=== PATIENT | female | born 1955 | race African-American/Black ===

== ENCOUNTER 2016-05-23 10:09 | Emergency (ER) | payer OTHER ==
[2016-05-23 10:14] VITALS: BMI 29.6
--- NOTE | 2016-05-23 10:58 | PDOC ---
History of Present Illness - History of Present Illness Initial Comments: 05/23/16 10:52 60-year-old female with a history of lupus, with lupus nephropathy, and a most recent creatinine 1.8, who is not on any medications at this time and is not on any immunosuppressants at this time She has a right pelvic kidney She also has a history of DJD of the lower T-spine, and chronic back pain in the lower T-spine Patient also has neuropathy in the left leg, for which she is on gabapentin She also has a history of hypertension and hyperlipidemia She is complaining of gradually increasing lower T-spine area pain, which is now worse with musculoskeletal maneuvers, and worse pulling herself up to a sitting position She denies any associated fevers or chills, she denies any bowel or bladder symptoms She denies any weakness in her lower extremities She denies any change in her left lower extremity neuropathy She denies any urinary symptoms, and she denies any dysuria urgency or frequency She denies any flank pain She denies any HOTEL SECURITY OFFICER symptoms, and has had a recent HOTEL SECURITY OFFICER exam which was normal She denies any abdominal pain with this She denies any other complaints at this time She states that she is able to take Tylenol, but not NSAIDs because of her nephropathy She states that her Tylenol has been not been helping her for this gradual exacerbation of her chronic back pain She denies any new symptoms or any alarm symptoms She denies any other complaints at this time, and the remainder of the review of systems is negative <Echo Mcdonnell - Last Filed: 05/23/16 12:50> <Nadira Davis - Last Filed: 05/23/16 13:22> - General Chief Complaint: Back Pain Stated Complaint: LOWER BACK PAIN Time Seen by Provider: 05/23/16 10:39 Past History - Past Medical History Asthma: Yes HTN: Yes Hypercholesterolemia: Yes Other medical history: thorasic degenerative disk, lupus - Surgical History Abdominal Surgery: Yes (SPLEENECTOMY) Cholecystectomy: Yes (1992) - Immunization History Immunization Up to Date: Yes - Psycho/Social/Smoking Cessation Hx Anxiety: No Suicidal Ideation: No Smoking Status: No Smoking History: Never smoked Number of Cigarettes Smoked Daily: 0 Information on smoking cessation initiated: No Hx Alcohol Use: No Drug/Substance Use Hx: No Substance Use Type: None Hx Substance Use Treatment: No <Echo Mcdonnell - Last Filed: 05/23/16 12:50> <Nadira Davis - Last Filed: 05/23/16 13:22> - Past Medical History Allergies/Adverse Reactions: Allergies Allergy/AdvReac Type Severity Reaction Status Date / Time No Known Allergies Allergy Verified 05/23/16 10:10 Home Medications: Ambulatory Orders Atorvastatin Ca [Lipitor] 40 mg PO HS 08/16/14 Cholecalciferol (Vitamin D3) [Vitamin D3] 3,000 unit PO DAILY 08/16/14 Amlodipine Besylate [Norvasc -] 10 mg PO DAILY 08/17/14 Allopurinol [Zyloprim -] 100 mg PO DAILY 08/23/14 Aspirin [ASA -] 81 mg PO DAILY 08/23/14 Estradiol [Estradiol Transdermal Patch] 1 each TD Q7D 08/23/14 Gabapentin [Neurontin -] 300 mg PO DAILY PRN 05/23/16 Oxycodone HCl/Acetaminophen [Percocet 5-325 mg Tablet] 1 - 2 combo PO Q4H PRN # 20 tablet MDD 6 05/23/16 *Physical Exam - Vital Signs Last Vital Signs Temp Pulse Resp BP Pulse Ox 98.4 F 87 20 143/89 98 05/23/16 10:11 05/23/16 10:11 05/23/16 10:11 05/23/16 10:11 05/23/16 10:11 - Physical Exam Comments: 05/23/16 10:55 Physical exam Last Vital Signs Temp Pulse Resp BP Pulse Ox 98.4 F 87 20 143/89 98 05/23/16 10:11 05/23/16 10:11 05/23/16 10:11 05/23/16 10:11 05/23/16 10:11 GENERAL: The patient is awake, alert, and fully oriented, and in no apparent distress. HEAD: Normal with no signs of trauma. NECK: Normal range of motion, supple No C-spine tenderness LUNGS: Breath sounds equal, clear to auscultation bilaterally. No wheezes, and no crackles. HEART: Regular rate and rhythm, normal S1 and S2 without murmur, rub or gallop. ABDOMEN: Soft, nontender, normoactive bowel sounds. No guarding, no rebound. No masses appreciated. BACK: There is mild diffuse lower T-spine tenderness without point tenderness There is no upper to mid T-spine tenderness, and there is no LS-spine tenderness There is no CVA tenderness There is some mild bilateral paraspinal muscle spasm in the lower thoracic region EXTREMITIES: There is 5 out of 5 and equal in the lower extremities bilaterally There is normal strength in the hip flexors bilaterally Patient has full dorsi flexion and plantar flexion of the feet bilaterally Sensation is intact Gait is normal NEUROLOGICAL: Cranial nerves II through XII grossly intact. Normal speech, normal gait. Grossly nonfocal neurologic exam PSYCH: Normal mood, normal affect. SKIN: Warm, Dry, <Echo Mcdonnell - Last Filed: 05/23/16 12:50> - Vital Signs Last Vital Signs Temp Pulse Resp BP Pulse Ox 97.5 F L 88 18 136/89 100 05/23/16 13:11 05/23/16 13:11 05/23/16 13:11 05/23/16 13:11 05/23/16 13:11 <Nadira Davis - Last Filed: 05/23/16 13:22> ED Treatment Course - RADIOLOGY Radiology Studies Ordered: Category Date Time Status SPINE-LUMBAR SACRAL [RAD] Stat Radiology 05/23/16 10:52 Ordered SPINE-THORACIC [RAD] Stat Radiology 05/23/16 10:51 Ordered <Echo Mcdonnell - Last Filed: 05/23/16 12:50> - Medications Given in the ED: ED Medications Discontinued Medications Generic Name Dose Route Start Last Admin Trade Name Freq PRN Reason Stop Dose Admin Hydromorphone HCl 1 mg 05/23/16 11:06 05/23/16 11:18 Dilaudid Injection - IM 05/23/16 11:07 1 mg ONCE ONE Administration <Nadira Davis - Last Filed: 05/23/16 13:22> Medical Decision Making - Medical Decision Making 05/23/16 10:52 Most likely exacerbation of chronic lower thoracic spine pain from DJD There are no alarm symptoms Patient does have a history of lupus, but she is on no immunosuppressive or any medications for her lupus at all at this time 05/23/16 12:50 T-spine series There is multilevel right lateral spondylolysis and bridging osteophytes, severe DJD LS-spine Moderate right facet joint arthropathy at L5-S1 Patient feeling much better after pain medication Unable to use NSAIDs due to her lupus nephritis history She states that she has been able to take Percocet in the past without difficulty willdischarge to home on Percocet Patient has a ride home <Echo Mcdonnell - Last Filed: 05/23/16 12:50> *DC/Admit/Observation/Transfer <Echo Mcdonnell - Last Filed: 05/23/16 12:50> <Nadira Davis - Last Filed: 05/23/16 13:22> Diagnosis at time of Disposition: Back pain - Discharge Dispostion Disposition: HOME Condition at time of disposition: Improved - Prescriptions Prescriptions: Oxycodone HCl/Acetaminophen [Percocet 5-325 mg Tablet] 1 - 2 combo PO Q4H PRN # 20 tablet MDD 6 PRN Reason: Pain - Referrals Referrals: Saman Scott MD [Primary Care Provider] - Call tomorrow - Patient Instructions Additional Instructions: Rest, warm compresses, Percocet as directed for pain Do not drive when taking this medication Followup with your primary care physician in 24-48 hours Return immediately if you worsen in any way Take your medications as directed - Post Discharge Activity Work/School Note: Back to Work
[2016-05-23] MEDS ORDERED: HYDROmorphone HCL CARPU-JECT 1 MG/1 ML DISP.SYRIN IM ONE (11:06)
[2016-05-23] MEDS ORDERED: HYDROmorphone HCL CARPU-JECT 1 MG/1 ML DISP.SYRIN ONE (11:13)
[2016-05-23 13:11] VITALS: BP 136/89; PULSE 88; TEMP 97.5
== END 2016-05-23 13:17 | disposition home or self-care (01) ==
LOC: JER 10:09
PROC: 3E0233Z Introduction of Anti-inflammatory into Muscle, Percutaneous Approach (ICD-10-PCS; principal; 2016-05-23)
DX: M51.34 Other intervertebral disc degeneration, thoracic region (principal); I10 Essential (primary) hypertension; J45.909 Unspecified asthma, uncomplicated; E78.00 Pure hypercholesterolemia, unspecified
CPT/HCPCS: 72070-TC; 72100-TC; 99282-25

== ENCOUNTER 2016-10-19 11:47 | Emergency (ER) | payer OTHER ==
[2016-10-19 11:51] VITALS: BP 130/92; PULSE 90; TEMP 98.9; BMI 28.8
[2016-10-19] MEDS ORDERED: ACETAMINOPHEN 325 MG TABLET (FP) PO ONE (12:32)
[2016-10-19] MEDS ORDERED: ACETAMINOPHEN 325 MG TABLET (FP) ONE (12:34)
--- NOTE | 2016-10-19 12:35 | PDOC ---
History of Present Illness - General Chief Complaint: Injury Stated Complaint: LT ANKLE PAIN Time Seen by Provider: 10/19/16 12:08 - History of Present Illness Initial Comments: 10/19/16 12:32 CHIEF COMPLAINT: ankle pain HISTORY OF PRESENT ILLNESS: 61 yo F with hx of lupus, HTN, HLD presents to fast track with left ankle pain x 3 week.s PAtient reports she was wearing high heels on her birthday and afterwards she put on flip flops and somehow twisted her ankle. She states she did not think it was a big problem and thought it would go away so never saw any one for it. She reports tenderness to both sides of her ankle but has been walking on it for 3 weeks. PAST MEDICAL HISTORY: HTN, HLD, lupus FAMILY HISTORY: Denies SOCIAL HISTORY: Denies tobacco, alcohol, illicit drug use. SURGICAL HISTORY: Denies ALLERGIES: NSAIDS (nephropathy) REVIEW OF SYSTEMS General/Constitutional: Denies fever or chills. Denies weakness, weight change. Musculoskeletal: R ankle pain x 3 wks. Neurologic: Denies headache, vertigo, loss of consciousness, or loss of sensation. PHYSICAL EXAM General Appearance: Well-appearing, appropriately dressed. No apparent distress. HEENT: EOMI, PERRLA. Respiratory/Chest: Lungs CTAB. Cardiovascular: RRR. S1, S2. Musculoskeletal/Extremities: Tenderness to b/l malleoli. Swelling to lateral malleolus. FROM of all extremities, normal capillary refill. No pedal edema, swelling, erythema or deformity. Integumentary: Appropriate color, dry, warm. No cyanosis, erythema, jaundice or rash Neurologic: freight representative II-XII intact. Fully oriented, alert. Appropriate mood/affect. Motor strength 5/5. No appreciable EOM palsy, facial droop or sensory deficit. 10/19/16 13:09 Past History - Past Medical History Allergies/Adverse Reactions: Allergies Allergy/AdvReac Type Severity Reaction Status Date / Time No Known Allergies Allergy Verified 10/19/16 11:51 Home Medications: Ambulatory Orders Atorvastatin Ca [Lipitor] 40 mg PO HS 08/16/14 Cholecalciferol (Vitamin D3) [Vitamin D3] 3,000 unit PO DAILY 08/16/14 Amlodipine Besylate [Norvasc -] 10 mg PO DAILY 08/17/14 Allopurinol [Zyloprim -] 100 mg PO DAILY 08/23/14 Aspirin [ASA -] 81 mg PO DAILY 08/23/14 Estradiol [Estradiol Transdermal Patch] 1 each TD Q7D 08/23/14 Gabapentin [Neurontin -] 300 mg PO DAILY PRN 05/23/16 Oxycodone HCl/Acetaminophen [Percocet 5-325 mg Tablet] 1 - 2 combo PO Q4H PRN # 20 tablet MDD 6 05/23/16 Acetaminophen [Tylenol -] 500 mg PO Q6H PRN #40 tablet 10/19/16 Asthma: Yes HTN: Yes Hypercholesterolemia: Yes - Surgical History Abdominal Surgery: Yes (SPLEENECTOMY) Cholecystectomy: Yes (1992) - Immunization History Immunization Up to Date: Yes - Psycho/Social/Smoking Cessation Hx Anxiety: No Suicidal Ideation: No Smoking Status: No Smoking History: Never smoked Number of Cigarettes Smoked Daily: 0 Hx Alcohol Use: Yes (SOCIAL) Drug/Substance Use Hx: No Substance Use Type: None Hx Substance Use Treatment: No *Physical Exam - Vital Signs Last Vital Signs Temp Pulse Resp BP Pulse Ox 98.9 F 90 20 130/92 97 10/19/16 11:49 10/19/16 11:49 10/19/16 11:49 10/19/16 11:49 10/19/16 11:49 ED Treatment Course - RADIOLOGY Radiology Studies Ordered: Category Date Time Status ANKLE & FOOT-LEFT* [RAD] Stat Radiology 10/19/16 12:23 Ordered *DC/Admit/Observation/Transfer Diagnosis at time of Disposition: Ankle sprain Qualifiers: Encounter type: initial encounter Involved ligament of ankle: other ligament Laterality: left Qualified Code(s): S93.492A - Sprain of other ligament of left ankle, initial encounter - Discharge Dispostion Disposition: HOME Condition at time of disposition: Stable Admit: No - Prescriptions Prescriptions: Acetaminophen [Tylenol -] 500 mg PO Q6H PRN #40 tablet PRN Reason: Pain - Referrals Referrals: Saman Scott MD [Primary Care Provider] - Ellis Solorio MD [Staff Physician] - - Patient Instructions Printed Discharge Instructions: DI for Ankle Sprain, How To Perform RICE (Rest , Ice, Compress, Elevate) Additional Instructions: Please take medication as prescribed. Follow RICE therapy as discussed ( instructions provided). If the pain persists past 5-7 days after this therapy, please follow up with orthopedics (referral provided) for possible MRI or physical therapy. If you experience any loss of sensation, increased swelling, or redness or warmth to your leg, please return to the ER.
== END 2016-10-19 13:05 | disposition home or self-care (01) ==
LOC: JERFT 11:47
DX: S93.402A Sprain of unspecified ligament of left ankle, initial encounter (principal); X50.1XXA Overexertion from prolonged static or awkward postures, initial encounter; Y93.89 Activity, other specified; Y92.89 Other specified places as the place of occurrence of the external cause; I10 Essential (primary) hypertension; E78.00 Pure hypercholesterolemia, unspecified; J45.909 Unspecified asthma, uncomplicated
CPT/HCPCS: 73610-TC-LT; 73630-TC-LT; 99281-25

== ENCOUNTER 2017-11-23 14:03 | Emergency (ER) | payer OTHER ==
[2017-11-23 14:10] VITALS: BP 131/82; PULSE 87; TEMP 98.9; BMI 31.0
[2017-11-23] MEDS ORDERED: KETOROLAC TROMETHAMINE 30 MG/1 ML VIAL IM ONE (14:57)
--- NOTE | 2017-11-23 15:01 | PDOC ---
History of Present Illness - General Chief Complaint: Pain Stated Complaint: RIGHT Shoulder PAIN Time Seen by Provider: 11/23/17 14:31 History Source: Patient - History of Present Illness Occurred: reports: other Severity: reports: severe Upper Extremity Pain Location: right: shoulder Past History - Past Medical History Allergies/Adverse Reactions: Allergies Allergy/AdvReac Type Severity Reaction Status Date / Time No Known Allergies Allergy Verified 11/23/17 14:09 Home Medications: Ambulatory Orders Atorvastatin Ca [Lipitor] 40 mg PO HS 08/16/14 Amlodipine Besylate [Norvasc -] 10 mg PO DAILY 08/17/14 Allopurinol [Zyloprim -] 100 mg PO DAILY 08/23/14 Estradiol [Estradiol Transdermal Patch] 1 each TD Q7D 08/23/14 Gabapentin [Neurontin -] 300 mg PO BID 05/23/16 Acetaminophen [Tylenol -] 1,000 mg PO Q6H PRN 10/23/17 Aspirin Coated [Ecotrin -] 81 mg PO DAILY 10/23/17 Cholecalciferol (Vitamin D3) [Vitamin D3] 3,000 unit PO DAILY 10/23/17 Zolpidem Tartrate [Ambien] 5 mg PO HS 10/23/17 Acetaminophen [Tylenol -] 2 tab PO Q6H #30 tablet 11/23/17 Tramadol HCl 50 mg PO Q6H #20 tablet MDD 200 mg 11/23/17 Anemia: No Asthma: Yes (DX YOUNG ADULT- STABLE) Cancer: No Cardiac Disorders: No CVA: No COPD: No CHF: No Dementia: No Diabetes: No GI Disorders: No Disorders: No HTN: Yes (DX 2009) Hypercholesterolemia: Yes (DX 2009) Liver Disease: No Seizures: No Thyroid Disease: No Other medical history: lupus - Surgical History Abdominal Surgery: Yes (SPLEENECTOMY (OPEN)) Appendectomy: No Cardiac Surgery: No Cholecystectomy: Yes (ERIN ANTHONY1992) Lung Surgery: No Neurologic Surgery: No Orthopedic Surgery: No - Immunization History Immunization Up to Date: Yes - Suicide/Smoking/Psychosocial Hx Smoking Status: No Smoking History: Never smoked Number of Cigarettes Smoked Daily: 0 Hx Alcohol Use: Yes (SOCIAL) Drug/Substance Use Hx: No Substance Use Type: Alcohol Hx Substance Use Treatment: No Review of Systems - Review of Systems Constitutional: No: Chills, Fever Musculoskeletal: Yes: Joint Pain. No: Joint Swelling *Physical Exam - Vital Signs Last Vital Signs Temp Pulse Resp BP Pulse Ox 98.9 F 87 18 131/82 99 11/23/17 14:06 11/23/17 14:06 11/23/17 14:06 11/23/17 14:06 11/23/17 14:06 - Physical Exam General Appearance: Yes: Appropriately Dressed, Mild Distress HEENT: positive: Normal Voice Neck: positive: Supple. negative: Tender, Decreased range of motion Respiratory/Chest: negative: Respiratory Distress Extremity: positive: Normal Inspection, Other (pain to R shoulder joint w/ ROM, unable to abduct past 90 degrees, strength 4/5 to RUE compared to 5/5 to L). negative: Tender, Swelling Integumentary: positive: Dry, Warm Neurologic: positive: Fully Oriented, Alert, Normal Mood/Affect. negative: Sensory Deficit Medical Decision Making - Medical Decision Making 11/23/17 15:01 62-year-old female, history of lupus, not currently on meds, follows up closely with her jordan man, here with persistent right shoulder pain. Patient states 3 months ago she developed severe, aching pain to right shoulder that starts from the right side of her neck and radiates to arm. States pain worse w / movement and unable to find comfortable position at night. No UE weakness or sensory changes. Denies trauma. States she was dx w/ "frozen shoulder" by her PMD and referred to PT which she completed w/ no improvement in pain. Currently on tylenol w/ no relief. Patient well-appearing, in mild distress and reports of severe pain to right neck/GH joint w/ movement and unable to abduct RUE past 90. Strength 4/5 on the right compared to the left. Sensation intact. Differential includes arthritis (hari. given h/o Lupus) vs rotator cuff tendinopathy (or tear) vs radiculopathy. Pain control and sling in ED. Dc w/ rx and ortho referral at this time 11/23/17 15:11 *DC/Admit/Observation/Transfer Diagnosis at time of Disposition: Shoulder pain Qualifiers: Chronicity: chronic Laterality: right Qualified Code(s): M25.511 - Pain in right shoulder - Discharge Dispostion Disposition: HOME - Prescriptions Prescriptions: Acetaminophen [Tylenol -] 2 tab PO Q6H #30 tablet Tramadol HCl 50 mg PO Q6H #20 tablet MDD 200 mg - Referrals Referrals: Saman Scott MD [Primary Care Provider] - Oscar Lauren MD [Staff Physician] - - Patient Instructions Printed Discharge Instructions: DI for Shoulder Pain Additional Instructions: Take medications as prescribed and call Dr. Lauren of orthopedic on Friday to make an appointment - Post Discharge Activity
[2017-11-23] MEDS ORDERED: KETOROLAC TROMETHAMINE 30 MG/1 ML VIAL ONE (15:10)
== END 2017-11-23 15:18 | disposition home or self-care (01) ==
LOC: JERFT 14:03
PROC: 3E0233Z Introduction of Anti-inflammatory into Muscle, Percutaneous Approach (ICD-10-PCS; principal; 2017-11-23)
DX: M25.511 Pain in right shoulder (principal); M32.9 Systemic lupus erythematosus, unspecified; E78.00 Pure hypercholesterolemia, unspecified; I10 Essential (primary) hypertension; J45.909 Unspecified asthma, uncomplicated
CPT/HCPCS: 99281-25